=== PATIENT | female | born 1985 | race Caucasian/White ===

== ENCOUNTER → 2021-01-28 10:29 | Outpatient (CLI) | payer OTHER, MEDICAID, SELFPAY ==
[2021-01-28 11:30] LABS: COVID19 -Nasal RAPID Negative (Negative)
== END ==
PROVIDERS: Visit Provider Physician Assistant
DX: R05.9 Cough, unspecified (principal); R50.9 Fever, unspecified; R09.89 Other specified symptoms and signs involving the circulatory and respiratory systems
CPT/HCPCS: 87635